=== PATIENT | male | born 1980 | race Caucasian/White ===

== ENCOUNTER 2020-03-10 01:23 | Emergency (ER) | payer SELFPAY ==
--- NOTE | 2020-03-10 08:46 | RAD ---
THREE VIEWS RIGHT SHOULDER: COMPARISON: None. HISTORY: Fall with shoulder pain that has worsened over the last week. FINDINGS: Three views of the right shoulder show no evidence of acute fracture or dislocation. Mild joint spac e narrowing is seen in the glenohumeral joint. The visualized right thorax is unremarkable. IMPRESSION: Mild degenerative change of the right shoulder without acute osseous abnormality. POS: EAA
== END 2020-03-10 02:25 | disposition home or self-care (01) ==
LOC: MADERS 01:23
DX: M25.511 Pain in right shoulder (principal); F17.210 Nicotine dependence, cigarettes, uncomplicated; Z79.899 Other long term (current) drug therapy; W06.XXXA Fall from bed, initial encounter

== ENCOUNTER 2020-08-29 14:09 | Emergency (ER) | payer SELFPAY ==
[2020-08-29] MEDS ORDERED: Ibuprofen 800 MG TAB ONE (14:38)
== END 2020-08-29 15:12 | disposition home or self-care (01) ==
LOC: MADERS 14:09
DX: S93.402A Sprain of unspecified ligament of left ankle, initial encounter (principal); F17.210 Nicotine dependence, cigarettes, uncomplicated; X50.9XXA Other and unspecified overexertion or strenuous movements or postures, initial encounter

== ENCOUNTER 2020-12-28 13:16 | Emergency (ER) | payer SELFPAY | END 2020-12-28 14:14 | disposition home or self-care (01) | LOC: MADERS 13:16 | DX: U07.1 COVID-19 (principal); H66.91 Otitis media, unspecified, right ear; F17.210 Nicotine dependence, cigarettes, uncomplicated; Z79.899 Other long term (current) drug therapy | CPT/HCPCS: 71045 ==

== ENCOUNTER 2022-08-27 08:42 | Emergency (ER) | payer SELFPAY ==
[2022-08-27] MEDS ORDERED: Midazolam HCl 2 mg/2 ml Vial ONE (09:08)
[2022-08-27 12:03] LABS: Dilantin 3.8 ug/mL (10.0-20.0)
== END 2022-08-27 10:10 | disposition home or self-care (01) ==
LOC: MADERS 08:42
DX: G40.409 Other generalized epilepsy and epileptic syndromes, not intractable, without status epilepticus (principal); F17.210 Nicotine dependence, cigarettes, uncomplicated; Z79.899 Other long term (current) drug therapy
CPT/HCPCS: 36415; 80185; 96361; 96374; J2250

== ENCOUNTER 2024-11-05 17:03 | Emergency (ER) | payer OTHER, SELFPAY | END 2024-11-05 19:27 | disposition home or self-care (01) | LOC: MADERS 17:03 | DX: L23.7 Allergic contact dermatitis due to plants, except food (principal); L03.221 Cellulitis of neck; L03.313 Cellulitis of chest wall; F17.290 Nicotine dependence, other tobacco product, uncomplicated | CPT/HCPCS: 99282 ==